=== PATIENT | female | born 1970 | race Caucasian/White ===

== ENCOUNTER 2017-01-05 06:46 | Inpatient (IN) | payer OTHER ==
--- NOTE | 2016-12-23 09:44 | PAT Medication Instructions ---
Service Date Dec 23, 2016. Current Home Medication List Estradiol (Estradiol), 1 MG PO QAM Hydrocodone/Acetaminophen 5MG/325MG ([place] 5MG/325MG), 1 TABLET PO TID PRN for N Lisdexamfetamine Dimesylate (Vyvanse), 70 MG PO QAM Omeprazole (Prilosec), 20 MG PO QAM Medication Instructions For Your Scheduled Surgery - Check with surgeon for instructions: Estradiol (Estradiol), 1 MG PO QAM - Hold the following medications the morning of surgery: Lisdexamfetamine Dimesylate (Vyvanse), 70 MG PO QAM - Take the following medications the morning of surgery with a sip of water: Omeprazole (Prilosec), 20 MG PO QAM Hydrocodone/Acetaminophen 5MG/325MG ([place] 5MG/325MG), 1 TABLET PO TID PRN for N (okay to take up to 4 hours prior to surgery if needed) - Take the following medications as scheduled the night before surgery: Hydrocodone/Acetaminophen 5MG/325MG ([place] 5MG/325MG), 1 TABLET PO TID PRN for N (if needed) If you have any questions please call us at [phone] or [phone] or [phone]
[2016-12-23 10:12] LABS: URINE APPEARANCE CLEAR (CLEAR); URINE BILIRUBIN NEG (NEG); URINE COLOR YELLOW; URINE NITRITE NEG (NEG); URINE SPECIFIC GRAVITY 1.008 (1.000-1.030); UROBILINOGEN NEG (NEG)
[2016-12-23 10:14] LABS: MANUAL MICROSCOPIC REQUIRED? NO; REVIEW REQ? NO
[2016-12-23 10:21] LABS: PARTIAL THROMBOPLASTIN RATIO 1.1; PROTHROMBIN TIME (PATIENT) 10.3 SECONDS (9.0-12.0)
--- NOTE | 2016-12-23 10:21 | DIAGNOSTIC IMAGING REPORT ---
CHEST PREADMISSION(PA/LAT) CLINICAL HISTORY: Preoperative evaluation. COMPARISON STUDY: No previous studies for comparison. FINDINGS: Lung volumes are normal. The lungs are clear. There is no pneumothorax or pleural effusion. Cardiac size is normal. Mediastinal contours are normal. There is no evidence of pulmonary edema. A left upper quadrant bowel anastomosis is incidentally noted. There are cholecystectomy clips. IMPRESSION: No acute cardiopulmonary findings. Electronically signed by: Matthew Wiseman M.D. 12/23/2016 10:19 AM Dictated Date/Time: 12/23/2016 10:19 AM
[2016-12-23 11:06] LABS: COMPLETE YES; EOS % 0.8 %; HEMATOCRIT 36.7 % (37-47); IG% 0.3 %; LYMPH % 32.2 %; LYMPH ABS # 1.28 K/uL (1.2-3.4); MEAN CELL VOLUME 87.2 fL (80-100); MEAN CORPUSCULAR HEMOGLOBIN 28.5 pg (25-34); MEAN CORPUSCULAR HGB CONC 32.7 g/dl (32-36); MEAN PLATELET VOLUME 10.2 fL (7.4-10.4); MONO % 3.8 %; NEUT % 62.9 %; PLATELET COUNT 169 K/uL (130-400); RED BLOOD COUNT 4.21 M/uL (4.2-5.4); WHITE BLOOD COUNT 3.97 K/uL (4.8-10.8)
[2016-12-23 11:22] LABS: BUN/CREATININE RATIO 22.7 (10-20); CALCIUM 9.2 mg/dl (8.5-10.1); CREATININE 0.58 mg/dl (0.60-1.20); POTASSIUM 4.4 mmol/L (3.5-5.1)
[2017-01-05] VITALS (8 sets, daily range): BP systolic 91–116; BP diastolic 60–77; PULSE 57–80; TEMP 36.3–36.7; O2SAT 95–100; Ht 162.6 cm; Wt 78.8 kg
[~2017-01-05] VITALS: Ht 162.6 cm; Wt 78.8 kg
[~2017-01-05 06:46] MED LIST: ACETAMINOPHEN 500 MG TAB PO SCH; ESTR0.5T3 PO; FAMOTIDINE 20 MG TAB PO SCH; GABAPENTIN 300 MG CAP PO SCH; HYDR-5688 PO; LACTATED RINGER'S 1000ML 1,000 ML IV SCH; LACTATED RINGER'S 1000ML 500 ML IV ONE; LACTATED RINGER'S 1000ML IV SCH; LISD70CA PO; PRLSR20 PO; ROPIVACAINE 5MG/ML 30 ML 150 MG, BUPIVACAINE/EPINEPHR 0.5% MPF 30 ML, KETOROLAC TROMETH... INFIL SCH; VANCOMYCIN INJ 1,200 MG in SODIUM CHLORIDE 0.9% 250ML 250 ML IV SCH
[2017-01-05] MEDS ORDERED: BUPIVACAINE 0.5 % 5 MG/1 ML PF 10ML VIAL ONE (07:52)
[2017-01-05] MEDS ORDERED: BUPIVACAINE/EPINEPHRINE 0.25% 10 ML VIAL ONE ×2 (07:54)
[2017-01-05] MEDS ORDERED: MIDAZOLAM HCL 1 MG/ML 2ML VIAL ONE (08:50)
[2017-01-05] MEDS: LISDEXAMFETAMINE DIMESYLATE 70 MG PO SCH (09:00)
[2017-01-05] MEDS: TRANEXAMIC ACID INJ 1,000 MG in SODIUM CHLORIDE 0.9% 100ML 100 ML IV SCH ×2 (09:24→13:03)
--- NOTE | 2017-01-05 09:24 | History & Physical Bridge Note ---
H&P Re-Evaluation Bridge Note: I have examined the patient, reviewed the History & Physical and in the interval since the performance of the History & Physical I have noted the following changes of clinical significance: No changes noted
--- NOTE | 2017-01-05 09:27 | History and Physical ---
History & Physical Date Jan 05, 2017. Chief Complaint Osteoarthritis Left Knee History of Present Illness The patient is a 46 year old female with complaints of chronic left knee pain following 2 arthroscopies Past Medical/Surgical History gastric bypass surgery, GERD, bipolar disorder, ADHD Additional History Hepatic Disease: No Endocrine Disorder: No Kidney Disease: No Hypertension: No Heart Disease: No Bleeding Tendencies: No Infectious Diseases: No Allergies Coded Allergies: Penicillins (Verified Allergy, Unknown, HIVES, 01/05/17) [place] (Verified Allergy, Unknown, HIVES SWELLING, 12/23/16) Aspirin (Verified Adverse Reaction, Unknown, NOSEBLEEDS, 01/05/17) Home Medications Scheduled Estradiol (Estradiol), 1 MG PO QAM Lisdexamfetamine Dimesylate (Vyvanse), 70 MG PO QAM Omeprazole (Prilosec), 20 MG PO QAM Scheduled PRN Hydrocodone/Acetaminophen 5MG/325MG ([place] 5MG/325MG), 1 TABLET PO TID PRN for N Physical Examination Skin: warm/dry, no rash Eyes: normal inspection, EOMI, sclerae normal ENT: normal ENT inspection, pharynx normal Head: normocephalic, atraumatic Neck: supple, no adenopathy, trachea midline Respiratory/Chest: lungs clear, normal breath sounds, no respiratory distress Cardiovascular: regular rate, rhythm, no edema, no murmur Abdomen / GI: normal bowel sounds, non tender Back: normal inspection Extremities: normal inspection, normal range of motion Neurologic/Psych: no motor/sensory deficits, alert, normal reflexes, oriented x 3 Addiitonal Comments: Pain over medial femoral condyle, full ROM, no effusion Diagnosis Osteoarthritis Left Knee Plan of Treatment Left Total Knee
[2017-01-05] MEDS ORDERED: BACITRACIN 50000 UNIT VIAL ONE (09:34)
[2017-01-05] MEDS ORDERED: ORTHO JOINT ANESTHETIC ONE (09:34)
[2017-01-05] MEDS ORDERED: LIDOCAINE HCL 2% 2 ML VIAL (20MG/ML) ONE (09:59)
[2017-01-05] MEDS ORDERED: PROPOFOL IV EMULSION 10 MG/ML 20 ML VIAL IV ONE (09:59)
[2017-01-05] MEDS ORDERED: EpHEDrine SULFATE INJ 50 MG/ML AMP IV PRN (10:00)
[2017-01-05] MEDS ORDERED: PHENYLEPHRINE 100MCG/ML 5ML SYR IV PRN (10:00)
[2017-01-05] MEDS ORDERED: FLUMAZENIL 0.1 MG/1 ML 10 ML VIAL IV PRN (10:00)
[2017-01-05] MEDS ORDERED: LABETALOL HCL IV 5 MG/ML 20ML IV PRN (10:00)
[2017-01-05] MEDS ORDERED: ONDANSETRON INJ 2 MG/ML 2 ML VIAL IV PRN ×2 (10:00→11:45)
[2017-01-05] MEDS ORDERED: MEPERIDINE HCL 25 MG/ML CARP IV PRN (10:00)
[2017-01-05] MEDS ORDERED: FENTANYL CITRATE INJ 50 MCG/1 ML 2 ML VIAL IV PRN (10:00)
[2017-01-05] MEDS ORDERED: HYDROmorphone INJ 2 MG/ML SYR/VIAL IV PRN (10:00)
[2017-01-05] MEDS ORDERED: ATROPINE SULFATE 0.1 MG/ML 5ML SYR IV PRN (10:00)
[2017-01-05] MEDS ORDERED: NALOXONE HCL 0.4 MG/1 ML VIAL/CARP IV PRN (10:00)
--- NOTE | 2017-01-05 11:32 | [facility] Post Operative Brief Note ---
Immediate Operative Summary Operative Date Jan 05, 2017. Pre-Operative Diagnosis Osteoarthritis Left Knee Post-Operative Diagnosis Osteoarthritis Left Knee Procedure(s) Performed Left Total Knee Arthroplasty Surgeon Dr Humberto Miranda [employer] Professor Surgeon(s) Haim Patino PA-C Estimated Blood Loss 20ML Findings as above Specimens As per Surgeon A. Left knee bone and tissue Complication(s) None Disposition Recovery Room / PACU
[2017-01-05] MEDS ORDERED: HYDROCODONE/ACETAMOPHEN 5/325MG TAB PO PRN (11:45)
[2017-01-05] MEDS ORDERED: BISACODYL 10 MG SUPP PR PRN (11:45)
[2017-01-05] MEDS ORDERED: MoRPHine SULFATE 2 MG/ML CARP IV PRN (11:45)
[2017-01-05] MEDS ORDERED: MAGNESIUM HYDROXIDE SUSP 30 ML UDC PO PRN (11:45)
[2017-01-05] MEDS ORDERED: SILVER SULFADIAZINE 1% CR 50 GM JAR EXT PRN (11:45)
[2017-01-05] MEDS ORDERED: METOCLOPRAMIDE HCL INJ 5 MG/ML 2 ML VIAL IV PRN (11:45)
[2017-01-05] MEDS ORDERED: SOD PHOSPHATE/SOD BIPHOSPHATE ENEMA 132 ML BTL PR PRN (11:45)
--- NOTE | 2017-01-05 12:13 | DIAGNOSTIC IMAGING REPORT ---
LEFT KNEE 1 OR 2 VIEWS ROUTINE CLINICAL HISTORY: Left knee osteoarthritis. COMPARISON: Left knee radiographs December 17, 2016. FINDINGS: Alignment of the total left knee arthroplasty is anatomic. There is no periprosthetic fracture or unexpected radiopaque foreign body. Skin jes and drain are present. IMPRESSION: Expected findings following total left knee arthroplasty. Electronically signed by: Matthew Wiseman M.D. 01/05/2017 12:11 PM Dictated Date/Time: 01/05/2017 12:11 PM
--- NOTE | 2017-01-05 12:59 | Anesthesiology Progress Note ---
Anesthesia Post Op Note Date & Time Jan 05, 2017 at 12:59 Vital Signs Pain Intensity: 0 Vital Signs Past 12 Hours Date Time Temp Pulse Resp B/P (MAP) Pulse Ox O2 Delivery O2 Flow Rate FiO2 01/05/17 12:20 36.4 58 14 101/66 100 Nasal Cannula 2 Mask 01/05/17 12:10 36.4 59 14 93/66 100 Nasal Cannula 2 Mask 01/05/17 12:00 78 14 104/65 100 Oxymask 10 Mask 01/05/17 11:50 76 14 108/72 100 Oxymask 10 Mask 01/05/17 11:42 36.1 59 14 94/61 100 Oxymask 10 Mask 01/05/17 07:13 36.6 70 20 116/76 100 Room Air Notes Mental Status: alert / awake / arousable, participated in evaluation Pt Amnestic to Procedure: Yes Nausea / Vomiting: adequately controlled Pain: adequately controlled Airway Patency, RR, SpO2: stable & adequate BP & HR: stable & adequate Hydration State: stable & adequate Neuraxial Anesthesia: was administered, sensory block is resolving Anesthetic Complications: no major complications apparent
--- NOTE | 2017-01-05 13:55 | OPERATIVE REPORT ---
DATE OF OPERATION: 01/05/2017 PREOPERATIVE DIAGNOSIS: Primary osteoarthritis of the left knee. POSTOPERATIVE DIAGNOSIS: Same. PROCEDURE: Left total knee arthroplasty. SURGEON: Dr. Humberto Miranda. HEAVY EQUIPMENT SALES MANAGER: Haim Patino PA-C, whose assistance was necessary for retraction and positioning the leg and with closure. ANESTHESIA: Spinal with a left adductor nerve block and sedation. COMPLICATIONS: None. CONDITION: Stable to PACU. IMPLANTS USED: I used a [employer]omet Vanguard left total knee arthroplasty system with a size 67.5 femur, 63 tibia, size 12 poly, and 28 x 8 patella. All components were cemented with Palacos-G cement. INDICATIONS: Samia is a 46-year-old female who presented to my office with chronic left knee pain. She had 2 previous arthroscopies on the knee. Each arthroscopy showed significant arthritis in the medial compartment. X-rays showed collapse of the medial compartments of the left knee. She had chronic pain. She is also on chronic pain medication. She has bipolar disorder and PTSD, so significant time was spent describing postoperative pain with her and she assured me that she be able to handle it. She elected to proceed with a total knee arthroplasty. DESCRIPTION OF PROCEDURE: On 01/05/2017, she arrived at [facility] for the above procedure. She was seen in the preoperative holding area and the operative extremity was identified and signed. She was given preoperative antibiotics, a spinal anesthetic and a left adductor nerve block. She was taken back to the operating room, laid on the table in supine position and put under basic sedation. The left knee was prepped and draped in sterile fashion. Time-out was done and the patient and the extremity was properly identified. A midline incision was made over the patella. Dissection was taken down to the extensor mechanism and a medial parapatellar approach was used. The fat pad was left in place. The medial retinaculum was released and the knee was flexed. ACL, PCL and meniscus were removed. A drill was sent down the center of femoral canal followed by an intramedullary ailyn. Off that ailyn, a distal femoral cutting block was placed. A 12 mm was then resected off the distal femur at 5 degrees of valgus. A posterior referencing guide was used to measure the femur and it measured to be a size 67.5. Two drill holes were then placed in 3 degrees of external rotation. A 4-in-1 cutting block was placed. Anterior, posterior and chamfer cuts were then made. The box was then resected for the posterior stabilizing component. The proximal tibia was exposed. A drill was sent down the center of the tibial canal followed by an intramedullary ailyn. Off that ailyn, a proximal tibial resection guide was placed and 4 mm was resected off the low tibial side. First 2 mm was resected, the knee felt tight, so an additional 2 was resected. Time was then spent on cleaning any soft tissue remnants from the posterior aspect of the knee. A proximal tibia was exposed that measured to be a size 63. It was set in the appropriate rotation and punched. Trial components were placed. Knee was brought through a full range of motion and felt to be stable. The patella was then everted and 8 mm was resected off the posterior aspect of the patella. Patella measured to be a size 28 and 3 peg hole drills were made. A trial patella was used and seemed to be a good fit. Trials were then removed. The surrounding soft tissues were injected with 100 mL of an orthopedic pain control cocktail. The knee was then irrigated and the final components were cemented into place. Once cement had hardened, several polyethylene trials were used and a size 12 posterior stabilized poly seemed to be the best fit. The final poly was snapped into place and the anterior bar was locked. The knee was then irrigated with 3 liters of normal saline solution with bacitracin. Two drains were placed. The extensor mechanism was closed with #2 FiberWire suture in the superior medial aspect, a #1 Vicryl both proximally and distally. Skin was closed with 2-0 Vicryl, 3-0 V-Loc suture and jes. She was placed in a soft dressing and taken to the postanesthesia care unit in stable condition. She tolerated the procedure well. I attest to the content of the Intraoperative Record and any orders documented therein. Any exception s are noted below.
[2017-01-05] MEDS: SODIUM CHLORIDE 0.9% 1000ML 1,000 ML IV SCH ×2 (14:31→22:36)
[2017-01-05] MEDS: KETOROLAC TROMETHAMINE 30 MG/ML VIAL IV. SCH ×2 (16:17→22:23)
[2017-01-05] MEDS ORDERED: VANCOMYCIN INJ 1,200 MG in SODIUM CHLORIDE 0.9% 250ML 250 ML IV SCH (20:00)
[2017-01-05] MEDS: DOCUSATE SODIUM 100 MG CAP PO SCH (20:11)
[2017-01-05] MEDS: ASPIRIN 325 MG ECTAB PO SCH (20:12)
[2017-01-05] MEDS ORDERED: SENNA 8.6 MG TAB PO SCH (21:00)
[2017-01-06] MEDS: KETOROLAC TROMETHAMINE 30 MG/ML VIAL IV. SCH ×2 (03:34→08:47)
[2017-01-06 03:39] VITALS: BP 102/63; PULSE 75; TEMP 36.6; O2SAT 95
[2017-01-06 06:34] LABS: HEMATOCRIT 30.6 % (37-47); MEAN CELL VOLUME 89.7 fL (80-100); MEAN CORPUSCULAR HEMOGLOBIN 29.6 pg (25-34); MEAN PLATELET VOLUME 10.5 fL (7.4-10.4); PLATELET COUNT 120 K/uL (130-400); RED BLOOD COUNT 3.41 M/uL (4.2-5.4); WHITE BLOOD COUNT 4.55 K/uL (4.8-10.8)
[2017-01-06 07:04] LABS: BUN/CREATININE RATIO 16.1 (10-20); CALCIUM 8.3 mg/dl (8.5-10.1); CREATININE 0.54 mg/dl (0.60-1.20); POTASSIUM 3.7 mmol/L (3.5-5.1)
[2017-01-06] MEDS ORDERED: ASPEC325 PO (07:24)
[2017-01-06] MEDS ORDERED: RXC5 PO (07:24)
--- NOTE | 2017-01-06 07:26 | Discharge Instructions ---
Discharge Instructions Date of Service Jan 06, 2017. Admission Reason for Admission: Left Knee Osteoarthritis Discharge Discharge Diagnosis / Problem: Left Total Knee Discharge Goals Goal(s): Decrease discomfort, Improve function Activity Recommendations Activity Limitations: as noted below . Instructions / Follow-Up Instructions / Follow-Up Activity and Therapy Recommendations: * If you are using [facility] then Physical Therapy will be provided until they feel you are ready to start Outpatient Physical Therapy. If you are not using a Home Health agency then Outpatient Physical Therapy should start about 3-5 days from your day of surgery. Therapy will last about 6-10 weeks * It is important not to put a pillow under your knee when you are relaxing or sleeping. It is just as important to make sure you are getting your knee perfectly straight as it is to regain your knee bend. * You were shown a series of exercises in the hospital. Do these exercises three times each day including the exercises you were shown in physical therapy. * Get up and walk several times each day. For the first four weeks, try not to stand or walk for more than one hour at a time. If you do stand or walk for more than one hour, you will not hurt anything, but your leg will likely swell. * As you feel comfortable, you may change from the walker or crutches to a cane and then to independent walking. Medications: * Narcotic You will likely be sent home from the hospital with a prescription for the narcotic pain medication that worked best throughout your stay. * Aspirin Most patients will be required to take Aspirin 325mg twice a day for 6 weeks after surgery. This is obtained [id number] and a prescription is not necessary. * Other medications may be prescribed for specific circumstances. If you have any questions, please call the office at . * Resume previous home medications unless otherwise instructed TEDs/Elastic Stockings: The white elastic stockings help limit swelling and prevent blood clots from forming in your legs.~ The more you wear them, the more they work. Wear them for six weeks. Showering: You may shower 5 days from the day of surgery. Let the soapy shower water run over the jes. Do not scrub or soak the incision. Things To Watch For: * Drainage from the incision site that occurs more than one week after your surgery. * Increased redness at the incision site. * Fever above 102 degrees Fahrenheit. * Unusual chest pain or shortness of breath. * Call [facility] at with any of the above problems Follow-Up Visit: Follow-up with Dr. Miranda 2-3 weeks after your day of surgery. An appointment was probably scheduled when you signed-up for surgery in the office. If you have any questions call Office Instructions: More detailed instructions as well as Frequently Asked Questions were provided in a folder by our office when you signed-up for surgery. Please review these instructions when you get home. If you have any further questions or concerns, please feel free to call the office at [phone] Current Hospital Diet Patient's current hospital diet: Regular Diet Discharge Diet Recommended Diet: Regular Diet Procedures Procedures Performed: Left Total Knee Arthroplasty Pending Studies Studies pending at discharge: no Medical Emergencies . Who to Call and When: Medical Emergencies: If at any time you feel your situation is an emergency, please call [phone] immediately. . Non-Emergent Contact Non-Emergency issues call your: Surgeon Call Non-Emergent contact if: wound has increased drainage, wound has increased redness . "Provider Documentation" section prepared by Humberto Mirnada. . VTE Core Measure Inpt VTE Proph given/why not?: Other Anticoagulation (Aspirin 325 twice a day for 6 weeks)
--- NOTE | 2017-01-06 07:38 | PROGRESS NOTE ---
DATE: 01/06/2017 CHIEF COMPLAINT: Status post left total knee arthroplasty postop day #1. PROGRESS: Samia was seen and examined at bedside today. Overall, she is doing extremely well. She has no pain in her knee. She has been up and ambulating well. She is very optimistic. Has no complaints. PHYSICAL EXAMINATION: LEFT KNEE: She is lying with her knee out in full extension. The drain is to suction. The dressing is clean and dry. She has active dorsiflexion and plantarflexion of her left ankle. Sensation is intact throughout. LABS: She has an H&H today of 10.1 and 30.6. Her glucose is 114. Her vital signs are all stable on room air and she is voiding on her own. X-rays postoperatively of the left knee showed the prosthesis to be in anatomic alignment without any evidence of fracture, dislocation or loosening. IMPRESSION: Status post left total knee arthroplasty postop day #1. PLAN: At this point, she is doing well. She is on aspirin 325 mg twice a day for DVT prophylaxis. She is asking to go home later today. I told her if she did well with physical therapy and her pain was controlled, I would be willing to discharge her to home. The nursing staff can change the dressing and pull the drain early.
[2017-01-06 07:39] VITALS: BP 102/64; PULSE 80; TEMP 36.7; O2SAT 99
--- NOTE | 2017-01-06 07:43 | DISCHARGE SUMMARY ---
DISCHARGE DIAGNOSIS: Primary osteoarthritis of the left knee. PROCEDURE: Left total knee arthroplasty on 01/05/[address] Humberto Miranda. DISCHARGE INSTRUCTIONS: 1. Aspirin 325 mg twice a day for 6 weeks. 2. ESCOBAR hose stockings for 6 weeks. 3. Oxycodone 5 mg every 6 hours as needed for pain. 4. Follow up with pain management physician after the script of oxycodone is complete. 5. Estradiol 1 mg daily. 6. Vyvanse 70 mg daily. 7. Prilosec 20 mg daily. 8. May shower 5 days from the day of surgery. 9. Follow up with Dr. Miranda in 2 weeks. 10. Call the office of Dr. Miranda with any questions or concerns. HOSPITAL COURSE: Johnnie is a pleasant 46-year-old female who presented to my office with complaints of chronic left knee pain. She had 2 previous knee arthroscopies. She had grade 4 arthritis in the medial compartment. She does have pain management contract and she is on antipsychotics. After extensive discussions about pain levels postoperatively she still wanted to proceed with a left total knee arthroplasty. I felt given her pathology that a procedure was reasonable. On 01/05/[address] [facility] and underwent a left total knee arthroplasty without complications. She had a spinal anesthetic and a left adductor nerve block. Postoperatively, she was started on aspirin 325 mg twice a day and discharged to general orthopedic floor. Her hospital course was uneventful. On postop day #1, her H&H was stable at 10.1 and 30.6. She was working very well with physical therapy. She was really having no pain in her knee and she was very happy and optimistic about her outcome. She was doing well enough that I decided to discharge her to home on postop day #1 with the above instructions.
[2017-01-06 07:55] VITALS: O2SAT 99
[2017-01-06] MEDS: SODIUM CHLORIDE 0.9% 1000ML 1,000 ML IV SCH (08:11)
[2017-01-06] MEDS: DOCUSATE SODIUM 100 MG CAP PO SCH (08:45)
[2017-01-06] MEDS: ASPIRIN 325 MG ECTAB PO SCH (08:45)
[2017-01-06] MEDS: ESTRADIOL 1 MG TAB PO SCH ×2 (08:47→09:00)
[2017-01-06] MEDS ORDERED: PANTOprazole SOD 40 MG TAB PO SCH (09:00)
[2017-01-06] MEDS ORDERED: MULTIVITAMIN TAB PO SCH (09:00)
[2017-01-06] MEDS: LISDEXAMFETAMINE DIMESYLATE 70 MG PO SCH (09:07)
[2017-01-06 09:42] VITALS: BP 102/64; PULSE 80; TEMP 36.7; O2SAT 99
--- NOTE | 2017-01-06 10:42 | Anesthesiology Progress Note ---
Anesthesia Post Op Note Date & Time Jan 06, 2017 at 10:41 Vital Signs Pain Intensity: 0.0 Vital Signs Past 12 Hours Date Time Temp Pulse Resp B/P (MAP) Pulse Ox O2 Delivery O2 Flow Rate FiO2 01/06/17 09:42 36.7 80 13 99 Room Air 01/06/17 07:55 99 Room Air 01/06/17 07:43 Room Air 01/06/17 07:39 36.7 80 13 102/64 (77) 99 Room Air 01/06/17 03:39 36.6 75 16 102/63 (76) 95 Room Air 01/05/17 23:20 36.6 69 16 91/60 (70) 95 Room Air 01/05/17 23:15 Room Air Notes Mental Status: alert / awake / arousable, participated in evaluation Pt Amnestic to Procedure: Yes Nausea / Vomiting: adequately controlled Pain: adequately controlled Airway Patency, RR, SpO2: stable & adequate BP & HR: stable & adequate Hydration State: stable & adequate Neuraxial Anesthesia: was administered, sensory block resolved Anesthetic Complications: no major complications apparent
[2017-01-06 11:36] VITALS: BP 112/80; PULSE 80; TEMP 36.7; O2SAT 100
== END 2017-01-06 15:25 | disposition home health service (06) | DRG 470 ==
LOC: C.ACU 06:46 → C.3E 07:00 → ENRESERV 12:18
PROVIDERS: ADMIT Orthopaedic Surgery; ATTEND Orthopaedic Surgery
PROC: 0SRD0J9 Replacement of Left Knee Joint with Synthetic Substitute, Cemented, Open Approach (ICD-10-PCS; principal; 2017-01-05 09:15)
DX: M17.12 Unilateral primary osteoarthritis, left knee (principal); K21.9 Gastro-esophageal reflux disease without esophagitis; F90.9 Attention-deficit hyperactivity disorder, unspecified type; F31.9 Bipolar disorder, unspecified; F17.210 Nicotine dependence, cigarettes, uncomplicated; E66.9 Obesity, unspecified; Z68.30 Body mass index [BMI] 30.0-30.9, adult; Z98.84 Bariatric surgery status; Z79.891 Long term (current) use of opiate analgesic; Z79.899 Other long term (current) drug therapy; Z79.890 Hormone replacement therapy

== ENCOUNTER → 2017-04-09 | Day surgery (SDC) | payer OTHER ==
[2017-03-20 11:22] VITALS: Ht 162.6 cm; Wt 70.9 kg
[~2017-04-09] VITALS: Ht 162.6 cm; Wt 70.9 kg
[~2017-04-09] MED LIST changes: -ACETAMINOPHEN 500 MG TAB PO SCH; +ATROPINE SULFATE 0.1 MG/ML 5ML SYR IV PRN; +DICY10CA55 PO; +EpHEDrine SULFATE INJ 50 MG/ML AMP IV PRN; -FAMOTIDINE 20 MG TAB PO SCH; +FENTANYL CITRATE INJ 50 MCG/1 ML 2 ML VIAL IV PRN; +FENTANYL CITRATE INJ 50 MCG/1 ML 2 ML VIAL ONE; -GABAPENTIN 300 MG CAP PO SCH; +HYDROmorphone INJ 1 MG/ML SYR IV PRN; -LACTATED RINGER'S 1000ML 500 ML IV ONE; -LACTATED RINGER'S 1000ML IV SCH; +LIDOCAINE HCL 2% 2 ML VIAL (20MG/ML) ONE; +MIDAZOLAM HCL 1 MG/ML 2ML VIAL ONE; +ONDA4TAB46 PO; +ONDANSETRON INJ 2 MG/ML 2 ML VIAL IV PRN; +OXYCODONE/ACETAMINOPHEN 5-325 TAB PO PRN; +PROMETHAZINE HCL INJ 12.5 MG in SODIUM CHLORIDE 0.9% 50ML 50 ML IV PRN; +PROPOFOL IV EMULSION 10 MG/ML 20 ML VIAL IV ONE; -ROPIVACAINE 5MG/ML 30 ML 150 MG, BUPIVACAINE/EPINEPHR 0.5% MPF 30 ML, KETOROLAC TROMETH... INFIL SCH; +SODIUM CHLORIDE 0.9% 1000ML 1,000 ML IV SCH; -VANCOMYCIN INJ 1,200 MG in SODIUM CHLORIDE 0.9% 250ML 250 ML IV SCH
--- NOTE | 2017-04-09 14:14 | [facility] Post Operative Brief Note ---
Immediate Operative Summary Operative Date Apr 09, 2017. Pre-Operative Diagnosis Left knee status post total knee athrosplasty arthrofibrosis Post-Operative Diagnosis Same as pre-op Procedure(s) Performed Left Knee Manipulation Under Anesthesia Surgeon Dr. Miranda Transplanter Surgeon(s) Haim Patino PA-C Estimated Blood Loss Zero Findings as above Specimens None Complication(s) None Disposition Recovery Room / PACU
--- NOTE | 2017-04-09 14:16 | Discharge Instructions-SurgCtr ---
Discharge Instructions Date of Service Apr 09, 2017. Visit Reason for Visit: Left Knee Osteoarthritis, Stiff Knee Discharge Discharge Diagnosis / Problem: SAME ABOVE Discharge Goals Goal(s): Decrease discomfort, Improve function Activity Recommendations Activity Limitations: as noted below Driving or Machine Use: WHEN PAIN IS CONTROLLED Anesthesia . Post Anesthesia Instructions: If you have had General Anesthesia or IV Sedation: * Do not drive today. * Resume driving when surgeon permits. * Do not make important decisions or sign legal documents today. * Call surgeon for: 1. Temperature elevations greater than 101 degrees F. 2. Uncontrollable pain. 3. Excessive bleeding. 4. Persistent nausea and vomiting. 5. Medication intolerance (nausea, vomiting or rash). * For nausea and vomiting use only clear liquids such as: tea, soda, bouillon until nausea subsides, then gradually increase diet as tolerated. * If you have any concerns or questions, call your surgeon's office. If physician is unavailable and it is an emergency, call 911 or go to the nearest emergency room. . Diet Recommendations Home Diet: no limitations Fluid Restriction: None Procedures Procedures Performed: Left Knee Manipulation Under Anesthesia Pending Studies Studies pending at discharge: no Work Instructions Return To Work: after follow-up Medical Emergencies . Who to Call and When: Medical Emergencies: If at any time you feel your situation is an emergency, please call 911 immediately. . Non-Emergent Contact Non-Emergency issues call your: Primary Care Provider Call Non-Emergent contact if: you have a fever, temperature is above 101.5 . . "Provider Documentation" section prepared by Jimi Patino. .
--- NOTE | 2017-04-09 14:31 | OPERATIVE REPORT ---
DATE OF OPERATION: 04/09/2017 PREOPERATIVE DIAGNOSIS: Arthrofibrosis, status post left total knee arthroplasty. POSTOPERATIVE DIAGNOSIS: Same. PROCEDURE: Manipulation under anesthesia, left knee. SURGEON: Dr. Humberto Miranda. PERSONAL FINANCIAL COUNSELOR: None. ANESTHESIA: General. COMPLICATIONS: None. CONDITION: Stable to PACU. INDICATIONS: Samia is a 46-year-old female who underwent a left total knee about 3 months ago. She initially did well, but then she began to get tight. Her extension was okay, but she can flex past 90 degrees. We were concerned about her getting her full motion, so she elected to undergo a manipulation under anesthesia. DESCRIPTION OF PROCEDURE: On 04/09/2017, she arrived at [facility] for the above procedure. She was seen in the preoperative holding area and the operative extremity was identified and signed. She was taken back to the operating room, laid on the table in supine position and given general anesthesia. Time-out was done and the patient and operative extremity was properly identified. On preoperative exam, she had a range of motion from about 3 degrees to about 85 degrees. She had a hard stop around 85 degrees. A gentle manipulation was done under anesthesia and I was able to get about 130 degrees of flexion. She still stopped about 3 degrees shy of full extension, but she did the same on her contralateral side. She was then taken to the postanesthesia care unit in stable condition. She tolerated the procedure well. I attest to the content of the Intraoperative Record and any orders documented therein. Any exception s are noted below.
[2017-04-09 15:35] VITALS: TEMP 36.2
[2017-04-09 16:02] VITALS: BP 102/67; PULSE 99; O2SAT 100
--- NOTE | 2017-04-09 16:11 | Anesthesia Progress Nt - [facility] ---
Anesthesia Post Op Note Date & Time Apr 09, 2017 at 16:11 Vital Signs Pain Intensity: 4.0 Vital Signs Past 12 Hours Date Time Temp Pulse Resp B/P (MAP) Pulse Ox O2 Delivery O2 Flow Rate FiO2 04/09/17 16:02 99 16 102/67 (79) 100 Room Air 04/09/17 15:35 36.2 74 16 103/68 (80) 100 Nasal Cannula 04/09/17 15:18 58 17 04/09/17 15:18 58 17 04/09/17 15:18 57 17 100 04/09/17 15:18 57 17 100 04/09/17 15:17 62 18 100 04/09/17 15:17 63 18 04/09/17 15:16 106/69 04/09/17 15:16 36.6 67 17 106/69 100 Room Air 04/09/17 15:12 60 15 99 04/09/17 15:12 61 15 04/09/17 15:11 100/72 04/09/17 15:07 72 13 04/09/17 15:07 71 13 99 04/09/17 15:06 109/74 04/09/17 15:02 84 19 04/09/17 15:02 89 19 98/63 100 04/09/17 14:57 62 18 04/09/17 14:57 62 18 99 04/09/17 14:56 101/70 04/09/17 14:52 66 19 100 04/09/17 14:52 64 19 04/09/17 14:51 108/74 04/09/17 14:47 71 20 100 04/09/17 14:47 72 20 04/09/17 14:46 115/80 04/09/17 14:42 71 25 100 04/09/17 14:42 70 25 04/09/17 14:41 107/75 04/09/17 14:37 84 17 04/09/17 14:37 78 17 100 04/09/17 14:36 111/75 04/09/17 14:32 68 15 04/09/17 14:32 66 15 100 04/09/17 14:31 112/73 04/09/17 14:27 60 18 100 04/09/17 14:27 62 18 04/09/17 14:26 115/77 04/09/17 14:22 61 19 04/09/17 14:22 61 19 100 04/09/17 14:21 110/76 04/09/17 14:18 116/82 04/09/17 14:17 85 17 100 04/09/17 14:17 36.2 86 16 116/82 100 Mask 6 04/09/17 14:17 86 17 04/09/17 12:54 36.6 85 18 112/77 (89) 98 Room Air Notes Mental Status: alert / awake / arousable, participated in evaluation Pt Amnestic to Procedure: Yes Nausea / Vomiting: adequately controlled Pain: adequately controlled Airway Patency, RR, SpO2: stable & adequate BP & HR: stable & adequate Hydration State: stable & adequate Anesthetic Complications: no major complications apparent Doing well. Pain controlled. No n/v. VSS. Ready for d/c
== END | disposition home or self-care (01) ==
LOC: X.SURG 12:42
PROVIDERS: ATTEND Orthopaedic Surgery
DX: M24.662 Ankylosis, left knee (principal); Z96.652 Presence of left artificial knee joint; Z88.0 Allergy status to penicillin; Z88.6 Allergy status to analgesic agent; Z90.710 Acquired absence of both cervix and uterus; Z98.84 Bariatric surgery status; Z98.890 Other specified postprocedural states; Z82.49 Family history of ischemic heart disease and other diseases of the circulatory system; Z83.3 Family history of diabetes mellitus